=== PATIENT | female | born 1970 | race Caucasian/White ===

== ENCOUNTER 2023-05-09 14:35 | Emergency (ER) | payer BC ==
[~2023-05-09] VITALS: Ht 160 cm; Wt 63.5 kg
[~2023-05-09 14:35] MED LIST: DILANTIN; KEPPRA; LEXAPRO; LYRICA; TOPAMAX; WELLBUTRIN
[2023-05-09] MEDS: IV NORMAL SALINE 1000 ML BAG IV ONE (14:45)
[2023-05-09] MEDS: METOCLOPRAMIDE HCL 10 MG/2 ML VIAL IV ONE ×2 (14:50→17:40)
[2023-05-09] MEDS: HYDROMORPHONE 1 MG/1 ML DISP.SYRIN IV ONE ×2 (14:55→17:40)
[2023-05-09] MEDS ORDERED: METOCLOPRAMIDE HCL 10 MG/2 ML VIAL ONE ×2 (14:58→17:35)
[2023-05-09] MEDS ORDERED: HYDROMORPHONE 1 MG/1 ML DISP.SYRIN ONE ×2 (14:59→17:36)
[2023-05-09 15:58] LABS: BASOPHILS % (AUTO) 0.3 % (0.0-2.0); EOSINOPHILS % (AUTO) 0.1 % (0.0-7.0); HEMATOCRIT 46.6 % (31.2-41.9); HEMOGLOBIN 16.2 g/dL (10.9-14.3); LYMPHOCYTES # (AUTO) 0.4 K/uL (0.8-4.8); LYMPHOCYTES % (AUTO) 4.3 % (20.5-51.5); MEAN CORPUSCULAR HEMOGLOBIN 31.9 uug (24.7-32.8); MEAN CORPUSCULAR HGB CONC 35 g/dL (32.3-35.6); MEAN CORPUSCULAR VOLUME 92.1 fL (75.5-95.3); MONOCYTES # (AUTO) 0.2 K/uL (0.1-1.30); MONOCYTES % (AUTO) 1.6 % (0.0-11.0); NEUTROPHILS # (AUTO) 9.3 K/uL (1.8-8.9); NEUTROPHILS % (AUTO) 93.7 % (38.5-71.5); PLATELET COUNT (AUTO) 259 K/uL (179-408); RED BLOOD CELL COUNT(AUTO) 5.06 MIL/uL (3.63-4.92); RED CELL DISTRIBUTION WIDTH 13.8 % (12.3-17.7); WHITE BLOOD COUNT (AUTO) 9.9 K/uL (3.8-11.8)
[2023-05-09 16:03] LABS: DIFFERENTIAL COMMENT 1
[2023-05-09 16:04] LABS: CALCIUM 9.8 mg/dL (8.5-10.1); CARBON DIOXIDE 22 mmol/L (21-32); CHLORIDE 95 mmol/L (98-107); CREATININE 0.7 mg/dL (0.6-1.3); GLUCOSE 148 mg/dL (74-106); POTASSIUM 3.5 mmol/L (3.5-5.1); SODIUM SERUM 136 mmol/L (136-145); UREA NITROGEN, BLOOD 16 mg/dL (7-18)
[2023-05-09 16:13] LABS: ALANINE AMINOTRANSFERASE 38 U/L (14-59); ALBUMIN 4.8 g/dL (3.4-5.0); ALKALINE PHOSPHATASE 83 U/L (50-136); ASPARTATE AMINOTRANSFERASE 35 U/L (15-37); BILIRUBIN,DIRECT 0.4 mg/dL (0.0-0.2); BILIRUBIN,TOTAL 1.6 mg/dL (0.2-1.0); LIPASE 30 U/L (16-77); TOTAL PROTEIN, SERUM 8.1 g/dL (6.4-8.2)
[2023-05-09 16:44] LABS: PREGNANCY TEST SERUM QUAN < 1 miul/L (0-6)
[2023-05-09 17:13] LABS: *BLOOD, URINE 1+ (NEGATIVE); *CLARITY,URINE SLIGHTLY CLOUDY (CLEAR); *COLOR,URINE YELLOW (YELLOW); *KETONES,URINE 3+ (NEGATIVE); *UROBILINOGEN,URINE 0.2 E.U./dl (NORMAL); LEUKOCYTE ESTERASE ,URINE NEGATIVE (NEGATIVE); NITRITE, URINE NEGATIVE (NEGATIVE); PH,URINE 6.5 (5.0-8.0); UGLUCOSE NEGATIVE (NEGATIVE)
[2023-05-09] MEDS ORDERED: METO-295 PO (17:17)
[2023-05-09 17:39] LABS: *BILIRUBIN,URIN 1+ (NEGATIVE)
[2023-05-09 18:00] VITALS: O2SAT 99
[2023-05-09 18:04] LABS: *PROTEIN,URINE 3+ (NEGATIVE)
[2023-05-09 19:21] LABS: BACTERIA,URINE FEW /HPF (NONE SEEN); WBC,URINE NONE SEEN /HPF (0-3)
[2023-05-09 19:22] LABS: COARSE GRANULAR CASTS,URINE 0-3 /LPF; MUCUS,URINE MODERATE /LPF (0-FEW)
[2023-05-09 19:41] LABS: SQUAMOUS EPITHELIAL CELL,UR MODERATE /HPF (NONE SEEN)
== END 2023-05-09 18:09 | disposition home or self-care (01) ==
LOC: ER 14:35
DX: R19.7 Diarrhea, unspecified (principal); R11.2 Nausea with vomiting, unspecified; R10.2 Pelvic and perineal pain; G43.909 Migraine, unspecified, not intractable, without status migrainosus; F32.A Depression, unspecified; Z79.899 Other long term (current) drug therapy; Z88.5 Allergy status to narcotic agent
CPT/HCPCS: 99285; 74176; 96374; 71045; 96361; 96375; 80076; 80048; 81001; 83690; 85025; 84484; 84702; 36415; 93005; 96376; J2765 ×2; J1170 ×2; J7040; A4606; A4663

== ENCOUNTER 2023-08-23 15:03 | Inpatient (IN) | payer BC ==
[~2023-08-23] VITALS: Ht 160 cm; Wt 59.4 kg
[~2023-08-23 15:03] MED LIST changes: +METO-295 PO
[2023-08-23 15:28] LABS: BASOPHILS % (AUTO) 0.4 % (0.0-2.0); EOSINOPHILS % (AUTO) 0.1 % (0.0-7.0); HEMATOCRIT 48.1 % (31.2-41.9); HEMOGLOBIN 16.5 g/dL (10.9-14.3); LYMPHOCYTES # (AUTO) 1.1 K/uL (0.8-4.8); LYMPHOCYTES % (AUTO) 9.2 % (20.5-51.5); MEAN CORPUSCULAR HEMOGLOBIN 30.4 uug (24.7-32.8); MEAN CORPUSCULAR HGB CONC 34 g/dL (32.3-35.6); MEAN CORPUSCULAR VOLUME 88.7 fL (75.5-95.3); MONOCYTES # (AUTO) 0.6 K/uL (0.1-1.30); MONOCYTES % (AUTO) 5.1 % (0.0-11.0); NEUTROPHILS # (AUTO) 10.6 K/uL (1.8-8.9); NEUTROPHILS % (AUTO) 85.2 % (38.5-71.5); PLATELET COUNT (AUTO) 377 K/uL (179-408); RED BLOOD CELL COUNT(AUTO) 5.42 MIL/uL (3.63-4.92); RED CELL DISTRIBUTION WIDTH 13.7 % (12.3-17.7); WHITE BLOOD COUNT (AUTO) 12.4 K/uL (3.8-11.8)
[2023-08-23 15:31] LABS: DIFFERENTIAL COMMENT 1
[2023-08-23 15:42] LABS: ALBUMIN 4.4 g/dL (3.4-5.0); BILIRUBIN,DIRECT 0.2 mg/dL (0.0-0.2); BILIRUBIN,TOTAL 1.3 mg/dL (0.2-1.0); CALCIUM 9.5 mg/dL (8.5-10.1); CREATININE 0.9 mg/dL (0.6-1.3); POTASSIUM 3.6 mmol/L (3.5-5.1); TOTAL PROTEIN, SERUM 7.8 g/dL (6.4-8.2)
[2023-08-23] MEDS ORDERED: METOCLOPRAMIDE HCL 10 MG/2 ML VIAL ONE (15:48)
[2023-08-23] MEDS ORDERED: FAMOTIDINE. 20 MG/2 ML VIAL IV ONE (15:48)
[2023-08-23] MEDS: METOCLOPRAMIDE HCL 10 MG/2 ML VIAL IV ONE (16:06)
[2023-08-23] MEDS: IV NORMAL SALINE 1000 ML BAG IV ONE (16:06)
[2023-08-23] MEDS: FAMOTIDINE. 20 MG/2 ML VIAL IV ONE (16:06)
[2023-08-23] MEDS ORDERED: ONDANSETRON 4 MG/2 ML VIAL ONE (17:06)
[2023-08-23 17:12] LABS: *BILIRUBIN,URIN NEGATIVE (NEGATIVE); *BLOOD, URINE NEGATIVE (NEGATIVE); *CLARITY,URINE CLEAR (CLEAR); *COLOR,URINE YELLOW (YELLOW); *KETONES,URINE 2+ (NEGATIVE); *PROTEIN,URINE NEGATIVE (NEGATIVE); *UROBILINOGEN,URINE 0.2 E.U./dl (NORMAL); LEUKOCYTE ESTERASE ,URINE NEGATIVE (NEGATIVE); NITRITE, URINE NEGATIVE (NEGATIVE); PH,URINE 6.5 (5.0-8.0); UGLUCOSE NEGATIVE (NEGATIVE)
[2023-08-23 17:15] LABS: *URINE HCG, QUAL NEGATIVE (NEGATIVE)
[2023-08-23 17:18] LABS: WBC,URINE 0-3 /HPF (0-3)
[2023-08-23 17:19] LABS: BACTERIA,URINE MODERATE /HPF (NONE SEEN); SQUAMOUS EPITHELIAL CELL,UR MANY /HPF (NONE SEEN)
[2023-08-23] MEDS ORDERED: LORAZEPAM 2 MG/1 ML VIAL ONE (17:26)
[2023-08-23] MEDS: LORAZEPAM 2 MG/1 ML VIAL IV ONE (17:31)
[2023-08-23] MEDS ORDERED: DEXAMETHASONE SOD PHOSPHATE 4 MG INJ ONE (17:32)
[2023-08-23] MEDS: DEXAMETHASONE SOD PHOSPHATE 4 MG INJ IV ONE (17:34)
[2023-08-23] MEDS ORDERED: CEFTRIAXONE 1 G VIAL ONE (18:28)
[2023-08-23] MEDS ORDERED: ROSU10TA29 PO (18:30)
[2023-08-23] MEDS: CEFTRIAXONE 1 G in IV DEXTROSE 5% 50 ML IV ONE (18:30)
[2023-08-23] MEDS ORDERED: OXYC-875 PO (18:30)
[2023-08-23] MEDS ORDERED: NITR-84 (18:30)
[2023-08-23] MEDS ORDERED: TRAZ150T75 PO (18:30)
[2023-08-23] MEDS ORDERED: BUPR-53 PO (18:30)
[2023-08-23] MEDS ORDERED: LISI20TA30 PO (18:30)
[2023-08-23] MEDS ORDERED: CEPH500C2 PO (18:30)
[2023-08-23] MEDS ORDERED: PANT40TA49 PO (18:30)
[2023-08-23] MEDS ORDERED: ONDA4TAB11 SL (18:30)
[2023-08-23] MEDS ORDERED: PREG150C46 PO (18:30)
[2023-08-23] MEDS ORDERED: ACETAMINOPHEN 325 MG TABLET PO PRN (20:15)
[2023-08-23] MEDS ORDERED: OXYCODONE/APAP 5-325 MG TABLET PO PRN (20:15)
[2023-08-23] MEDS ORDERED: hydrALAZINE HCL 25 MG TABLET PO PRN (20:15)
[2023-08-23 21:50] VITALS: BP_SYST 145; BP_SYST 183; BP_DIAS 73; BP_DIAS 91; TEMP 98.9; O2SAT 96
[2023-08-23] MEDS: TRAZODONE 50 MG TABLET PO SCH (22:16)
[2023-08-23] MEDS ORDERED: IV DEXTROSE 5%-0.9%NS+20MeqKCL 1,000 ML IV ONE (22:47)
[2023-08-23] MEDS: IV DEXTROSE 5%-0.9%NS+20MeqKCL 1,000 ML IV PRN (23:15)
[2023-08-24] MEDS: MORPHINE SULFATE 2 MG/1 ML DISP.SYRIN IV PRN (01:54)
[2023-08-24] MEDS: ONDANSETRON 4 MG/2 ML VIAL IV PRN (02:24)
[2023-08-24 05:30] VITALS: BP 139/83; TEMP 98.1; O2SAT 98
[2023-08-24 07:34] LABS: BASOPHILS % (AUTO) 0.2 % (0.0-2.0); EOSINOPHILS % (AUTO) 0.1 % (0.0-7.0); LYMPHOCYTES # (AUTO) 1.1 K/uL (0.8-4.8); LYMPHOCYTES % (AUTO) 13.9 % (20.5-51.5); MEAN CORPUSCULAR HEMOGLOBIN 30.6 uug (24.7-32.8); MEAN CORPUSCULAR HGB CONC 34 g/dL (32.3-35.6); MEAN CORPUSCULAR VOLUME 89.2 fL (75.5-95.3); MONOCYTES # (AUTO) 0.5 K/uL (0.1-1.30); MONOCYTES % (AUTO) 6.7 % (0.0-11.0); NEUTROPHILS # (AUTO) 6.2 K/uL (1.8-8.9); NEUTROPHILS % (AUTO) 79.1 % (38.5-71.5); PLATELET COUNT (AUTO) 237 K/uL (179-408); RED BLOOD CELL COUNT(AUTO) 4.26 MIL/uL (3.63-4.92); RED CELL DISTRIBUTION WIDTH 13.2 % (12.3-17.7); WHITE BLOOD COUNT (AUTO) 7.8 K/uL (3.8-11.8)
[2023-08-24 07:36] LABS: DIFFERENTIAL COMMENT 1
[2023-08-24 07:40] LABS: ALBUMIN 3.2 g/dL (3.4-5.0); BILIRUBIN,TOTAL 0.8 mg/dL (0.2-1.0); CALCIUM 8.2 mg/dL (8.5-10.1); CREATININE 0.7 mg/dL (0.6-1.3); MAGNESIUM 1.9 mg/dL (1.8-2.4); PHOSPHOROUS 2.6 mg/dL (2.5-4.9); POTASSIUM 3.2 mmol/L (3.5-5.1); TOTAL PROTEIN, SERUM 5.9 g/dL (6.4-8.2)
[2023-08-24] MEDS ORDERED: LORAZEPAM 1 MG TABLET PO PRN (08:00)
[2023-08-24 08:05] LABS: THYROID STIMULATING HORMONE 1.096 mIU/mL (0.358-3.740)
[2023-08-24] MEDS: PREGABALIN 50 MG CAPSULE PO SCH (08:54)
[2023-08-24] MEDS: PANTOPRAZOLE SODIUM 40 MG TABLET.DR PO SCH (08:55)
[2023-08-24] MEDS: buPROPion XL 150 MG TAB.SR.24H PO SCH (08:55)
[2023-08-24] MEDS ORDERED: PANTOPRAZOLE SODIUM 40 MG VIAL IV SCH (09:00)
[2023-08-24] MEDS: CEFTRIAXONE 1 G in IV DEXTROSE 5% 50 ML IV SCH (09:15)
[2023-08-24] MEDS ORDERED: [UNRECOGNIZED DRUG - CODE] TD (09:46)
[2023-08-24] MEDS ORDERED: PROG100C15 PO (09:48)
[2023-08-24] MEDS ORDERED: POTASSIUM CHLORIDE 20 MEQ TAB.PRT.SR PO ONE (10:00)
[2023-08-24] MEDS ORDERED: IOHEXOL 300MG/ML 100 ML INFUS..BTL ONE (10:22)
[2023-08-24] MEDS ORDERED: IV NORMAL SALINE 250 ML IV ONE (10:22)
[2023-08-24] MEDS ORDERED: SWABABLE VALVE TRANSFER SET EA MC ONE (10:22)
[2023-08-24 11:59] VITALS: BP 109/76; TEMP 97.2; O2SAT 98
[2023-08-24] MEDS: POTASSIUM CHLORIDE 50 ML IV SCH (13:00)
[2023-08-24] MEDS: METOCLOPRAMIDE HCL 10 MG/2 ML VIAL IV SCH (13:15)
[2023-08-24 16:00] VITALS: BP 99/57; TEMP 97; O2SAT 97
[2023-08-24] MEDS ORDERED: METOCLOPRAMIDE HCL 10 MG/2 ML VIAL IV PRN (16:30)
[2023-08-24] MEDS: MORPHINE SULFATE 4 MG/1 ML DISP.SYRIN IV PRN (16:52)
[2023-08-24 19:00] VITALS: BP 113/40; TEMP 97.7; O2SAT 98
[2023-08-25] MEDS ORDERED: ONDANSETRON INJ 8 MG in IV NORMAL SALINE 50 ML IV PRN (05:30)
[2023-08-25 05:55] VITALS: BP 111/39; TEMP 97.4; O2SAT 95
[2023-08-25] MEDS: PANTOPRAZOLE SODIUM 40 MG TABLET.DR PO SCH (06:29)
[2023-08-25 08:03] LABS: BASOPHILS % (AUTO) 0.9 % (0.0-2.0); EOSINOPHILS # (AUTO) 0.1 K/uL (0.0-0.7); EOSINOPHILS % (AUTO) 1.1 % (0.0-7.0); HEMATOCRIT 35.5 % (31.2-41.9); HEMOGLOBIN 12.2 g/dL (10.9-14.3); LYMPHOCYTES # (AUTO) 1.8 K/uL (0.8-4.8); LYMPHOCYTES % (AUTO) 36.8 % (20.5-51.5); MEAN CORPUSCULAR HEMOGLOBIN 31.2 uug (24.7-32.8); MEAN CORPUSCULAR HGB CONC 35 g/dL (32.3-35.6); MEAN CORPUSCULAR VOLUME 90.6 fL (75.5-95.3); MONOCYTES # (AUTO) 0.4 K/uL (0.1-1.30); MONOCYTES % (AUTO) 9.2 % (0.0-11.0); NEUTROPHILS # (AUTO) 2.5 K/uL (1.8-8.9); PLATELET COUNT (AUTO) 214 K/uL (179-408); RED BLOOD CELL COUNT(AUTO) 3.92 MIL/uL (3.63-4.92); RED CELL DISTRIBUTION WIDTH 13.5 % (12.3-17.7); WHITE BLOOD COUNT (AUTO) 4.8 K/uL (3.8-11.8)
[2023-08-25 08:09] LABS: DIFFERENTIAL COMMENT 1
[2023-08-25 08:16] LABS: CALCIUM 8.4 mg/dL (8.5-10.1); CREATININE 0.6 mg/dL (0.6-1.3); MAGNESIUM 1.9 mg/dL (1.8-2.4); PHOSPHOROUS 2.6 mg/dL (2.5-4.9); POTASSIUM 3.6 mmol/L (3.5-5.1)
[2023-08-25 08:29] LABS: THYROID STIMULATING HORMONE 5.288 mIU/mL (0.358-3.740)
[2023-08-25 09:07] LABS: URIC ACID 2.6 mg/dL (2.6-6.0)
[2023-08-25 11:08] VITALS: BP 117/40; TEMP 98.1; O2SAT 96
[2023-08-25 15:50] VITALS: BP 100/39; TEMP 98.1; O2SAT 96
[2023-08-25 21:33] VITALS: BP 140/50; TEMP 98.6; O2SAT 98
[2023-08-26 05:20] VITALS: BP 152/71; TEMP 97.6; O2SAT 98
[2023-08-26 07:46] LABS: CALCIUM 7.7 mg/dL (8.5-10.1); CREATININE 0.7 mg/dL (0.6-1.3); POTASSIUM 3.9 mmol/L (3.5-5.1)
[2023-08-26 11:39] VITALS: BP 109/46; TEMP 97.8; O2SAT 97
== END 2023-08-26 13:20 | disposition home or self-care (01) | DRG 641 ==
LOC: ER 15:13 → MEDSURG3 21:14
PROVIDERS: ADMIT Internal Medicine; ATTEND Nurse Practitioner Acute Care
DX: E86.1 Hypovolemia (principal); N39.0 Urinary tract infection, site not specified; E87.1 Hypo-osmolality and hyponatremia; R10.11 Right upper quadrant pain; R11.2 Nausea with vomiting, unspecified; F12.90 Cannabis use, unspecified, uncomplicated; E03.8 Other specified hypothyroidism; Z90.49 Acquired absence of other specified parts of digestive tract; K21.9 Gastro-esophageal reflux disease without esophagitis; Z88.6 Allergy status to analgesic agent; E87.6 Hypokalemia; G40.909 Epilepsy, unspecified, not intractable, without status epilepticus; Z79.899 Other long term (current) drug therapy; F32.A Depression, unspecified; I10 Essential (primary) hypertension; R74.8 Abnormal levels of other serum enzymes
CPT/HCPCS: 36415; 83605; 83690; 83735; 84100; 84443; 84550; 84703; 85025; G0378; J0696; J1100; J2060; J2270; J2405; J2765; J3480; J3490; J7040; Q9967

== ENCOUNTER 2023-09-26 13:07 | Emergency (ER) | payer BC ==
[~2023-09-26] VITALS: Ht 160 cm; Wt 61.2 kg
[~2023-09-26 13:07] MED LIST changes: +BUPR-53 PO; +CEPH500C2 PO; -DILANTIN; -KEPPRA; -LEXAPRO; +LISI20TA30 PO; -LYRICA; +OXYC-875 PO; +PANT40TA49 PO; +PREG150C46 PO; +PROG100C15 PO; +ROSU10TA29 PO; -TOPAMAX; +TRAZ150T75 PO; -WELLBUTRIN; +[UNRECOGNIZED DRUG - CODE] TD
[2023-09-26] MEDS ORDERED: diphenhydrAMINE 50 MG/1 ML VIAL ONE (14:45)
[2023-09-26] MEDS ORDERED: DEXAMETHASONE SOD PHOSPHATE 10 MG INJ ONE (14:45)
[2023-09-26] MEDS ORDERED: METOCLOPRAMIDE HCL 10 MG/2 ML VIAL ONE (14:45)
[2023-09-26] MEDS: METOCLOPRAMIDE HCL 10 MG/2 ML VIAL IV ONE (14:52)
[2023-09-26] MEDS: DEXAMETHASONE SOD PHOSPHATE 4 MG INJ IV ONE (14:52)
[2023-09-26] MEDS: IV NORMAL SALINE 1000 ML BAG IV ONE (14:52)
[2023-09-26] MEDS: diphenhydrAMINE 50 MG/1 ML VIAL IV ONE (14:52)
[2023-09-26] MEDS: HYDROMORPHONE 1 MG/1 ML DISP.SYRIN IV ONE ×3 (15:32→20:42)
[2023-09-26] MEDS ORDERED: HYDROMORPHONE 1 MG/1 ML DISP.SYRIN ONE ×3 (15:32→20:35)
[2023-09-26 16:01] LABS: BASOPHILS # (AUTO) 0.1 K/UL (0.0-0.2); BASOPHILS % (AUTO) 0.8 % (0.0-2.0); DIFFERENTIAL COMMENT 1; EOSINOPHILS % (AUTO) 0.2 % (0.0-7.0); HEMATOCRIT 47.5 % (31.2-41.9); HEMOGLOBIN 15.8 g/dL (10.9-14.3); LYMPHOCYTES # (AUTO) 0.8 K/uL (0.8-4.8); LYMPHOCYTES % (AUTO) 9.7 % (20.5-51.5); MEAN CORPUSCULAR HEMOGLOBIN 29.8 uug (24.7-32.8); MEAN CORPUSCULAR HGB CONC 33 g/dL (32.3-35.6); MONOCYTES # (AUTO) 0.4 K/uL (0.1-1.30); MONOCYTES % (AUTO) 4.6 % (0.0-11.0); NEUTROPHILS # (AUTO) 7.4 K/uL (1.8-8.9); NEUTROPHILS % (AUTO) 84.7 % (38.5-71.5); PLATELET COUNT (AUTO) 330 K/uL (179-408); RED BLOOD CELL COUNT(AUTO) 5.28 MIL/uL (3.63-4.92); RED CELL DISTRIBUTION WIDTH 14.3 % (12.3-17.7); WHITE BLOOD COUNT (AUTO) 8.7 K/uL (3.8-11.8)
[2023-09-26 16:10] LABS: CALCIUM 8.9 mg/dL (8.5-10.1); CARBON DIOXIDE 28 mmol/L (21-32); CHLORIDE 98 mmol/L (98-107); CREATININE 0.6 mg/dL (0.6-1.3); GLUCOSE 102 mg/dL (74-106); POTASSIUM 3.5 mmol/L (3.5-5.1); SODIUM SERUM 136 mmol/L (136-145); UREA NITROGEN, BLOOD 12 mg/dL (7-18)
[2023-09-26 16:26] LABS: ALANINE AMINOTRANSFERASE 21 U/L (14-59); ALBUMIN 3.8 g/dL (3.4-5.0); ALKALINE PHOSPHATASE 66 U/L (50-136); ASPARTATE AMINOTRANSFERASE 14 U/L (15-37); BILIRUBIN,DIRECT 0.3 mg/dL (0.0-0.2); BILIRUBIN,TOTAL 1.1 mg/dL (0.2-1.0); NT-PRO BNP 493 pg/mL (0-125); TOTAL PROTEIN, SERUM 6.8 g/dL (6.4-8.2)
[2023-09-26 20:39] VITALS: O2SAT 98
[2023-09-26] MEDS ORDERED: hydrALAZINE HCL 20 MG/1 ML VIAL ONE (20:43)
[2023-09-26] MEDS: hydrALAZINE HCL 20 MG/1 ML VIAL IV ONE ×2 (20:47→20:48)
[2023-09-26 20:48] VITALS: BP 159/98
== END 2023-09-26 21:11 | disposition short-term general hospital (02) ==
LOC: ER 13:07
DX: I61.9 Nontraumatic intracerebral hemorrhage, unspecified (principal); R07.89 Other chest pain; G43.909 Migraine, unspecified, not intractable, without status migrainosus; E78.5 Hyperlipidemia, unspecified; Z90.49 Acquired absence of other specified parts of digestive tract; Z88.5 Allergy status to narcotic agent; Z79.899 Other long term (current) drug therapy; Z20.822 Contact with and (suspected) exposure to COVID-19
CPT/HCPCS: 99291; 96374; 96375; 70450; 96361; 87426; 80076; 80048; 83880; 85025; 85730; 84484; 36415; 93005 ×2; 71045; 96376; J1100; J1200; J0360; J2765; J1170 ×3; J7040; A4606; A4663